=== PATIENT | female | born 1930 | race Caucasian/White ===

== ENCOUNTER 2017-07-18 18:01 | Observation (INO) | payer MEDICARE, MEDICAID ==
[~2017-07-18] VITALS: Ht 160 cm; Wt 95.2 kg
[~2017-07-18 18:01] MED LIST: ALEN70TA2 PO; ALLO300T2 PO; ASCO100089 PO; BENZ-12 PO; CHOL200025 PO; FURO40TA4 PO; HYDR-4003 PO; LOSA100T29 PO; PANT40TA2 PO; POTA10TA12 PO
[2017-07-18 18:27] VITALS: BP 116/103; PULSE 92; RESP 18; O2SAT 94
--- NOTE | 2017-07-18 19:05 | ED.REPORT ---
HPI-Extremity Problem Lower Date of Service Jul 18, 2017 ED Provider: Danish Villa MD Pt is a 87 y/o female with a history of osteoporosis, DM, hypertension, and hyperlipidemia who presents to the ED via EMS complaining of constant left thigh pain onset two days ago. She states that her symptoms started when she got out of bed, and rates her pain is 0/10 at rest, but increases to 2/10 with activity. Additional symptoms include warmth in her feet. She denies leg swelling, chest pain, or SOB. Pt also denies any recent trauma, fall, or similar symptoms in the past. Nursing Notes Stated Complaint: LEFT LEG PAIN Chief Complaint: Extremity Trauma Nursing Notes Reviewed: Yes (Averail, GoInstant not reconciled) Allergies: Coded Allergies: niacin (Verified Allergy, Intermediate, red and itching, 12/27/15) calcitonin (Verified Adverse Reaction, Intermediate, Rash,Itching,, ) Scheduled Alendronate Sodium (Fosamax) 70 Mg Tablet 70 MG PO WEEKLY Allopurinol (Allopurinol) 300 Mg Tablet 300 MG PO DAILY Ascorbic Acid (Vitamin C) 1,000 Mg Tab.chew 1,000 MG PO DAILY Cholecalciferol (Vitamin D3) (Vitamin D3) 2,000 Unit Tablet 2,000 UNIT PO DAILY Furosemide (Furosemide) 40 Mg Tablet 40 MG PO DAILY Losartan Potassium (Losartan Potassium) 100 Mg Tablet 100 MG PO DAILY Potassium Chloride ER (Potassium Chloride ER) 10 Meq Tablet 10 MEQ PO BID TAKE WITH FOOD General Time Seen by MD: 19:01 Chief Complaint Other (Left thigh pain) Hx Obtained From: Patient Arrived By: Ambulance Onset Occurred: 2 days ago Symptom Duration: Constant Quality: Painful Severity: Current: Pain level 0 out of 10 Severity: Maximum: Pain level 2 out of 10 Recent Healthcare: Recent doctor visit Similar Sx Previous: No Past Medical History Past Medical History History of hypercalcemia Gout Reports: Hyperlipidemia, Hypertension Reports: Depression Past Surgical History Right hip fracture repair Family History Colon cancer Smoking History Never Smoker Social History Alcohol Use: Denies alcohol use Drug Use: Denies drug use Other Social History: Good social support, Local resident Ambulatory Status Independent Review of Systems Warmth in feet Musculoskeletal: Reports: Extremity pain (Left thigh pain), Denies: Extremity swelling Complete sys rev & neg: except as marked. Respiratory: Denies: Shortness of breath Cardiovascular: Denies: Chest pain Physical Exam Initial Vital Signs Vital Signs (First) Date Time Temp Pulse Resp B/P Pulse Ox O2 Delivery O2 Flow Rate FiO2 07/18/17 18:27 36.8 92 18 116/103 94 Room Air Initial VS: Reviewed, Vital signs normal Head / Eyes: Atraumatic, Normocephalic Neck: Supple, Full range of motion Upper Extremities: Vascular intact, Neuro intact, No swelling, No tenderness Skin: Warm, Dry, No cyanosis Neurologic: Alert, Oriented, Nonfocal Psychiatric: Mood/affect normal, Behavior normal, Normal thought content Lower Extremity / Pelvis / MS: Full range of motion, No swelling, Neurologic intact, Vascular intact No point tenderness Good pulses Preserved extension and inflection Ankle / Foot: No swelling, Neurologic intact, Vascular intact General/Constitutional: Awake, Alert Appearance / Presentation: Positive: Obese Respiratory / Chest: Atraumatic, Breath sounds NL, Breath sounds = bilat, No respiratory distress Cardiovascular: Heart rate NL, Regular rhythm, Heart sounds NL Interpretation & Diagnostics US VEINOUS LEG DUPLEX UNILATERAL, LEFT IMPRESSION: Occlusive DVT involving the mid to distal left femoral vein. Dictated by: Elissa Hebert M.D. on 07/18/2017 at 21:03 Approved by: Elissa Hebert M.D. on 07/18/2017 at 21:18 Lab Results Interpretation Result Diagram: 07/18/17 2145 Lab Results Interpretation: CBC nonspecific leukocytosis CMP extended laterally, is not resulted, patient being admitted UA negative ECG Interpretation ECG Interpretation: Sinus rhythm, rate 90 LVH Time: 20:56 Interpreted by: ED physician Re-Eval/Medical Decision Med Decision/Clinical Course This is a pleasant 87-year-old female presents with increasing left lower extremity pain. She's noted over the past couple days, denies any known trauma, noted any swelling, denies chest pain or shortness breath. The pain has been variant carpal movement. She is sensitive by PCP with concern for possible DVT. She has no previous DVT or definite known risk factors. She is not anticoagulated. On Exam she appears well. She has intact range of motion with no couple signs of fracture or dislocation. No signs of injury or cellulitis. No overt swellings evident, and the likes neurovascular intact. Her ultrasound is positive for left femoral DVT. On review with her, the patient lives by herself, I can't identify any overt contraindications anticoagulation-but is a little bit of concern of how well she is going to prior self, with pain, is newly anticoagulated. So discussing risks the plan is an observation admission for initial care for DVT, physical therapy evaluation of better assess how she's doing in terms of risk for pain, and education if she needs Lovenox certainly transitioned over to an oral agent sooner. Given this labs and EKG are also being obtained Source of Hx: Old records Re-Evaluation/Progress : Time of Eval: 20:11 Re-Evaluation/Progress Note: Pt rechecked. Discussed DVT on ultrasound and plan for admission. Pt understands and agrees with plan. All questions addressed. Consultation : Referral / Consult Name: Drea Escamilla DO Consulted With: Hospitalist Call Returned at: 20:45 Job Molder: Will see patient, Agrees with plan, Accepts admit Note: Discussed pt's case with hospitalist, Dr. Escamilla. She accepts admission. Differential Diagnosis: Positive: Venous thromboembolism, Negative: Abscess, Arterial occlus/ischemia, Calcaneal fracture, Compartment syndrome, Femur fracture, Fracture, Hip fracture, Knee ligament injury, Open fracture, Paronychia, Puncture wound Counseled Regarding: Diagnosis, Lab results, Need for admission Discharge & Departure Impression: Primary Impression: Deep vein thrombosis DVT location: lower extremity Affected thrombotic vein of extremity: femoral Laterality: left Chronicity: unspecified Qualified Code: I82.412 - Acute embolism and thrombosis of left femoral vein Disposition: ADMITTED TO HOSPITAL Discharge Condition All VS Reviewed: Yes Condition: Stable Referrals: Po Salinas DO (PCP) Scribekaterina Attestation Portions of this note were transcribed by Helene Fuentes. I, Dr. Villa, personally performed the history, physical exam and medical decision-making; I reviewed and confirmed the accuracy of the information in the transcribed note. Signed by: Jason Bryan, 07/18/17. copies to: Po Salinas Matthew F MD Jul 18, 2017 19:05 Helene Fuentes Jul 18, 2017 19:15 Danish Villa MD Jul 18, 2017 19:05 Helene Fuentes Jul 18, 2017 19:15
[2017-07-18] MEDS ORDERED: Ondansetron 2 mg/mL 2 mL Inj IVPUSH PRN (21:20)
[2017-07-18] MEDS ORDERED: Alum-Mag Hydrox-Simeth 30 mL Suspension PO PRN (21:20)
[2017-07-18] MEDS ORDERED: Polyethylene Glycol (PEG) 17 Gm Powder PO PRN (21:20)
--- NOTE | 2017-07-18 21:20 | DRSVH ---
PROCEDURE: US VEINOUS LEG DUPLEX UNILATERAL, LEFT INDICATIONS: Left leg pain. Evaluate for DVT. TECHNIQUE: Real-time imaging, as well as color and pulse Doppler interrogation, were performed of the lower extr emity deep veins from the inguinal ligament to the popliteal fossa. COMPARISON: None. FINDINGS: There are occlusive filling defects in the mid to distal left femoral vein consistent with deep venous thrombosis. IMPRESSION: Occlusive DVT involving the mid to distal left femoral vein. Dictated by: Elissa Hebert M.D. on 07/18/2017 at 21:03 Approved by: Elissa Hebert M.D. on 07/18/2017 at 21:18
[2017-07-18 21:50] LABS: BASOPHILS % (AUTO) 0.3 % (0-3); EOSINOPHILS % (AUTO) 1.7 % (0-5); MONOCYTES % (AUTO) 7.8 % (4-12); Mean Corpuscular Volume 89.9 fL (81-100); NEUTROPHILS % (AUTO) 73.3 % (40-74); Platelet Count 205 bil/L (150-400)
[2017-07-18 22:18] VITALS: BP 164/84; PULSE 91; RESP 22; O2SAT 96
[2017-07-18 22:20] VITALS: PULSE 94
[2017-07-18 22:28] LABS: Magnesium 1.6 mg/dL (1.6-2.6)
[2017-07-18 22:43] LABS: APPEARANCE,URINE CLEAR (CLEAR,HAZY); COLOR,URINE YELLOW (YELLOW); OCCULT BLOOD,URINE NEGATIVE (NEGATIVE); UROBILINOGEN,URINE NORMAL (NORMAL)
--- NOTE | 2017-07-18 22:54 | PCM.HPMED ---
Subjective Date of Service Jul 18, 2017 Primary Provider: Admitting Physician: Drea Escamilla DO Primary Care Physician: Po Salinas DO Attending Physician: Drea Escamilla DO Admit Status: From the Emergency Department, Full Admit Chief Complaint: Lower extremity pain. . History of Present Illness: Katarina Johnson is an 87-year-old female with a past medical history significant for osteoporosis, diabetes mellitus type II, non-insulin using, hypertension and hyperlipidemia who presented to [facility] emergency department via EMS complaining of constant left thigh pain 2 days. She states that her symptoms started when she got out of bed 2 days ago. She rates her pain as a 0 out of 10 at rest but it increases to +2 out of 10 with activity. She reports that her leg pain was so severe today that she was unable to ambulate. She denies headache, chest pain, shortness of breath, lower extremity edema, nausea, vomiting, abdominal pain, fever, chills, dysuria, diarrhea or constipation. Additional symptoms include warmth in her feet. She also denies any recent trauma, fall, surgery, prolonged immobilization or history of blood clot in the past. She has no family history of blood clots. Vital signs in the ER ER: Temperature 36.8. Pulse 92. Respiratory rate 18. Blood pressure . Pulse ox 94% room air. She was started on Lovenox with dosing per pharmacist. ECP is Dr. Salinas. . Review of Systems: A comprehensive review of systems was conducted with the patient and found to be negative except as above in the History of Present Illness. . Allergies Coded Allergies: niacin (Verified Allergy, Intermediate, red and itching, 12/27/15) calcitonin (Verified Adverse Reaction, Intermediate, Rash,Itching,, ) Home Medications Alendronate 70 mg weekly. Allopurinol 300 mg daily. Ascorbic acid 1000 mg daily. Furosemide 40 mg daily. Losartan 100 mg daily. Potassium chloride 10 mEq twice a day. Vitamin D3 2000 international units daily. . PMH 1. Osteoporosis. 2. Gout. 3. Hyperlipidemia. 4. Hypertension. 5. Prediabetes. 6. Vitamin D deficiency. . Surgical History 1. Right hip fracture repair. 2. Hysterectomy and bilateral salpingo-oophorectomy. 3. Bilateral cataract extraction. 4. Colonoscopy with polypectomy 2015. 5. Parathyroid gland removal- benign. . Family History Mother who of CVA at 72 years old. Father with unknown type of cancer and at 90 years old. Twin brother who has colon cancer. . Social History Hx Alcohol Use: No Hx Substance Use: No Hx Tobacco Use: No Smoking Status: Never Smoker Additional Information She is . She has one son and one daughter who are healthy. She is from [place]. . Exam Vital Signs Vital Sign - Last Date Time Temp Pulse Resp B/P Pulse Ox O2 Delivery O2 Flow Rate FiO2 07/18/17 18:27 36.8 92 18 116/103 94 Room Air Exam General: Elderly female lying in bed and in no acute distress, well-developed, well-nourished, appropriately interactive. HEENT: Normocephalic, atraumatic. External ears without defect. Pupils equal, round, and reactive to light. Anicteric sclerae, moist conjunctivae, and no lid lag. Oropharynx free of erythema and cobble stoning with moist mucosa. Neck: Supple with full range of motion. No lymphadenopathy or thyromegaly. Cardiovascular: Regular rate and rhythm without murmurs, rubs, or gallops appreciated Pulmonary: Clear to auscultation bilaterally without crackles, wheezes, or rhonchi. Normal respiratory effort with no use of accessory muscles. Abdomen: Soft, nontender, nondistended, bowel sounds present. No hepatosplenomegaly or masses appreciated. Extremities: No clubbing, cyanosis, or edema. Skin: Normal temperature, turgor, and texture; no rash, ulcers, or subcutaneous nodules appreciated. Neurological: Cranial nerves grossly intact. Normal muscle strength, tone, and bulk. Reflexes, coordination, and sensory function within normal limits. No known gait impairment. Psychiatric: Normal mood and affect. Alert and oriented to person, place, and time. . Lab and Diagnostics Labs Item Value Date Time White Blood Count 11.5 th/mm3 H 07/18/172144 Red Blood Count 4.74 mil/mm3 07/18/172144 Hemoglobin 14.2 g/dL 07/18/172144 Hematocrit 42.6 % 07/18/172144 Mean Corpuscular Volume 89.9 fL 07/18/172144 Mean Corpuscular Hemoglobin 30.0 pg 07/18/172144 Mean Corpuscular Hemoglobin Concent 33.3 % 07/18/172144 Red Cell Distribution Width 15.4 % 07/18/172144 Platelet Count 205 alex/L 07/18/172144 Neutrophils (%) (Auto) 73.3 % 07/18/172144 Lymphocytes (%) (Auto) 16.5 % 07/18/172144 Monocytes (%) (Auto) 7.8 % 07/18/172144 Eosinophils (%) (Auto) 1.7 % 07/18/172144 Basophils (%) (Auto) 0.3 % 07/18/172144 X-Rays, CTs and MRIs US VEINOUS LEG DUPLEX UNILATERAL, LEFT IMPRESSION: Occlusive DVT involving the mid to distal left femoral vein. Dictated by: Elissa Hebert M.D. on 07/18/2017 at 21:03 Approved by: Elissa Hebert M.D. on 07/18/2017 at 21:18 . Assessment & Plan Katarina Johnson is an 87-year-old female with a past medical history significant for osteoporosis, hypertension, and hyperlipidemia who presented to [facility] emergency department via EMS complaining of constant left thigh pain 2 days. 1. Acute lower extremity DVT, present on admission. Active. - Patient presented with left thigh pain 2 days. - The patient denies any history of prolonged immobilization, trauma, fall, recent surgery or previous blood clot. - Ultrasound demonstrated occlusive DVT involving the mid to distal left femoral vein, as above. - Consider hypercoagulable workup. - No history of malignancy. Patient recently had a colonoscopy last year with polypectomy. Of note, she does have a twin brother with colon cancer. - Continue enoxaparin with dosing per pharmacist. Chronic problems: 2. Hypertension, present on admission. Stable. - Continue losartan 100 mg daily, furosemide 40 mg daily, and potassium chloride 10 mEq twice daily. 3. Gout, not present on admission. Stable. - Continue allopurinol 300 mg daily. 4. Osteoporosis, present on admission. Stable. - Patient takes alendronate every Tuesday. Held for now. 5. Prediabetes, present on admission. Stable. - Hemoglobin A1c pending. - Continue to monitor blood glucose. If continuously elevated consider low- dose correctional scale insulin. PRN antiemetics: Zofran and Maalox. PRN bowel regimen: Senna and MiraLAX. PRN analgesics: Tylenol. Patient is admitted under inpatient status with expected length of stay greater than 2 midnights due to severity of presenting symptoms, risk of adverse event, and complexity of treatment plan. . Attending Statement The patient was seen and examined together with house staff on 07/18/2017 and I agree with the history, exam and plan as outlined in the note above. Amy Guerin DO Jul 18, 2017 21:43 Drae Escamilla DO Jul 18, 2017 23:37
[2017-07-18 23:38] LABS: TROPONIN T < 0.010 ug/L (0.0-0.011)
[2017-07-18] MEDS ORDERED: ASCO250T7 PO (23:39)
[2017-07-18] MEDS ORDERED: POLY17PO2 PO (23:39)
--- NOTE | 2017-07-19 00:54 | NUR ---
Admit / Med Rec pt arrived to [facility] room 3005 around 22:10 from the ED, all personal belongings arrived with the pt. MD in room to see pt at that time. tele placed, senior technical support analyst notified. VSS, BP elevated, afebrile, on O2 (does not use at home). pt is A&Ox3. IV SL, patent. pt denies pain. admission questions completed at bedside per previous admission recall and pt' verbal report. call light placed within reach, verbalized understanding of use. pt denied having any questions or concerns at that time. Med Rec completed at bedside per pt's handwritten list, pt verbalized it is up to date. made aware.
[2017-07-19 01:52] VITALS: BP 166/86; PULSE 96; RESP 20; O2SAT 93
[2017-07-19 04:54] VITALS: BP 123/74; PULSE 74; RESP 20; O2SAT 94
--- NOTE | 2017-07-19 05:23 | NUR ---
Oxygen Needs AIR TURNING MACHINE FEEDER placed for high risk RAQUEL, pt O2 sats decreased to 87-88% on RA while in bed asleep, resting. 1L O2 placed by n/c while asleep, pt reports not wearing O2 at home. pt's O2 sats have remained >92% since O2 was placed. continuing to monitor. call light placed within reach, pt using appropriately to make needs known. hourly rounding in effect.
[2017-07-19 05:33] LABS: BASOPHILS % (AUTO) 0.3 % (0-3); EOSINOPHILS % (AUTO) 2.1 % (0-5); MONOCYTES % (AUTO) 8.9 % (4-12); Mean Corpuscular Hemoglobin 30.3 pg (27.0-35.0); Mean Corpuscular Volume 90.3 fL (81-100); NEUTROPHILS % (AUTO) 71.9 % (40-74); Platelet Count 187 bil/L (150-400)
--- NOTE | 2017-07-19 09:14 | NUR ---
Social Work-initial assessment/readiness for discharge: Data:See initial assessment. Pt is a 87 y/o female who was admitted on 07/18/17 for DVT per H&P. Pt's insurance is [facility] and [facility] supp and PCP is Po Salinas DO. EMR reviewed. SW met with pt at bedside, SW role explained. Pt is alert and oriented x3. Pt resides at in [place] at [facility] in a second floor apartment with elevator access. Pt is independent with ADls. Facility that pt lives in has a bus that provides transprot to the grocery store and an individual named Anna that can assist with any other transport needs, pt does not drive. Pt has no HH or SNF history. Pt uses either a fww or cane at baseline. Pt has no continuous churn buttermaker care insurance or VA benefits. No concerns noted around pt's capacity for self care from MD cosmetic sales advisor. DPOA/advanced directive was discussed and pt confirms this has been completed. Pt confirms her friend Anna will provide transport home. Per RN notes, pt has been up independent in her room. SW provided pt with discharge planning checklist and encouraged her to call with any questions, phone number provided on white board in room. No anticipated discharge needs. SW will continue to follow if needs arise. Assessment:pt who is independent at baseline. Plan:Pt to discharge home when medically stable via POV. No anticipated discharge needs. SW will continue to follow if needs arise. SUNNI Fierro Addendum: 07/19/17 at 0919 by ARNOLDO CEDENO Amended: Links added.
[2017-07-19 09:27] VITALS: BP 145/79; PULSE 94; RESP 22; O2SAT 92
[2017-07-19] MEDS ORDERED: APIX5TAB PO (10:26)
--- NOTE | 2017-07-19 10:47 | NUR ---
Called [facility] and got fax number. Faxed prescription to [phone], asked for a call back regarding patients copay for this medication. Updated CHIEF ULTRASOUND TECHNOLOGIST
[2017-07-19 11:03] VITALS: PULSE 92
[2017-07-19] MEDS ORDERED: RIVA15TA PO (11:21)
--- NOTE | 2017-07-19 12:03 | NUR ---
Case Management BRAGA given & explained to pt Becca BARTH RN
--- NOTE | 2017-07-19 12:23 | NUR ---
Social Work-readiness for discharge/bedside rounds: Data:EMR Reviewed. pt is on day 1 of hospitalization for DVT left lower leg per H&P. Pt may discharge later today or tomorrow. order received to check the cost of medications. SW received RX for Eliquis. SW checked with pt and her preferred pharmacy is [facility] in [place]. NIA asked UR specialist to send RX to this pharmacy. SW received a call back stating that this RX would require a prior authorization, but pt's insurance would like cover Pradaxa or Xarelto. NIA updated who has written RX for Xarelto. SW sent this RX to the pharmacy and was informed that this RX would be covered with a $5.77 copay. NIA updated MD regarding the cost and she will speak with pt. NIA will continue to follow. Assessment:Pt who is independent at baseline. Plan:Pt to discharge home when medically stable via POV. Pt's xarelto medication is covered with a $5.77 copy, updated. NIA will continue to follow. SUNNI Fierro
[2017-07-19 14:08] VITALS: BP 111/73; PULSE 97; RESP 20; O2SAT 91
--- NOTE | 2017-07-19 15:22 | DRSVH ---
PROCEDURE: X-RAY CHEST, TWO VIEWS ([id number]) INDICATIONS: hypoxia TECHNIQUE: 2 views of the chest were acquired. COMPARISON: [facility], CR, XR CHEST 2VW, 09/12/2016, 19:17. [facility], C R, XR CHEST 2VW, 12/02/2016, 12:08. FINDINGS: Surgical changes and devices: None. Lungs and pleura: An incomplete inspiratory result is noted, causing a crowded appearance to the lexii g markings. No focal infiltrates are seen. No pneumothorax or significant pleural effusions are see n. Mediastinum: The cardiac contours are within normal limits. The aorta demonstrates calcification and tortuosity. Bones and chest wall: Age-appropriate bony degenerative changes are seen. No suspicious bony abnorm alities. Soft tissues appear unremarkable. IMPRESSION: Limited chest study, without an acute abnormality identified. Dictated by: Juvenal Queen M.D. on 07/19/2017 at 15:19 Approved by: Juvenal Queen M.D. on 07/19/2017 at 15:20
--- NOTE | 2017-07-19 15:45 | PCM.DIMED ---
Discharge Instructions Date of Service Jul 19, 2017 Dates of Hospitalization Jul 18, 2017 at 20:45 Diet Discharge Diet: Low fat, Low Sodium Activity Discharge Activity: No restrictions Call your provider Call your provider for: Shortness of breath, Chest pain, Other (worsening leg pain or swelling) Patient Instructions Patient Instructions In addition to checking your leg and blood thinner medication ask your doctor if you should be referred for a sleep study. Your oxygen levels drop into the 80s when you are sleeping. Follow-up with PCP in: 1 week Dana Medel MD Jul 19, 2017 15:45
--- NOTE | 2017-07-19 15:51 | PCM.DC.MED ---
Discharge Summary Date of Service Jul 19, 2017 Dates of Hospitalization Date of Hospital Admission Jul 18, 2017 at 20:45 Date of Discharge: Jul 19, 2017 Providers: Admitting Physician: Drea Escamilla DO Primary Care Physician: Po Salinas DO Attending Physician: Tyree Whitlock MD Diagnosis at Time of Discharge Diagnosis at Time of Discharge Left lower extremity DVT Procedures XRay, CTs & MRIs US VEINOUS LEG DUPLEX UNILATERAL, LEFT IMPRESSION: Occlusive DVT involving the mid to distal left femoral vein. Dictated by: Elissa Hebert M.D. on 07/18/2017 at 21:03 Approved by: Elissa Hebert M.D. on 07/18/2017 at 21:18 . Brief History Katarina Johnson is an 87-year-old female with a past medical history significant for osteoporosis, diabetes mellitus type II, non-insulin using, hypertension and hyperlipidemia who presented to [facility] emergency department via EMS complaining of constant left thigh pain 2 days. She states that her symptoms started when she got out of bed 2 days ago. She rates her pain as a 0 out of 10 at rest but it increases to +2 out of 10 with activity. She reports that her leg pain was so severe today that she was unable to ambulate. She denies headache, chest pain, shortness of breath, lower extremity edema, nausea, vomiting, abdominal pain, fever, chills, dysuria, diarrhea or constipation. Additional symptoms include warmth in her feet. She also denies any recent trauma, fall, surgery, prolonged immobilization or history of blood clot in the past. She has no family history of blood clots. Vital signs in the ER ER: Temperature 36.8. Pulse 92. Respiratory rate 18. Blood pressure . Pulse ox 94% room air. She was started on Lovenox with dosing per pharmacist. Hospital Course 1. Acute lower extremity DVT, present on admission. Active. - Patient presented with left thigh pain 2 days. - The patient denies any history of prolonged immobilization, trauma, fall, recent surgery or previous blood clot. - Ultrasound demonstrated occlusive DVT involving the mid to distal left femoral vein, as above. - Consider hypercoagulable workup. - No history of malignancy. Patient recently had a colonoscopy last year with polypectomy. Of note, she does have a twin brother with colon cancer. - Initially started on enoxaparin with dosing per pharmacist. - Discussed with the patient options of warfarin (also with Lovenox initially) vs one of the new or agents which does not require Lovenox and does not require frequent lab tests. Did discuss the disadvantage of them being more difficult to reverse than warfarin if she were to have bleeding. She decided to go with Xarelto. # Hypoxia at night - Noted to have O2 saturations down into the 80s during night and 1 L of oxygen per nasal cannula was placed - Following morning having O2 saturations of 92-94% on 1 L - Chest x-ray and BNP were done which were unremarkable - Home oxygen evaluation was needed but she does not require home oxygen - Consider outpatient sleep study Chronic problems: 2. Hypertension, present on admission. Stable. - Continue losartan 100 mg daily, furosemide 40 mg daily, and potassium chloride 10 mEq twice daily. 3. Gout, not present on admission. Stable. - Continue allopurinol 300 mg daily. 4. Osteoporosis, present on admission. Stable. - Patient takes alendronate every Tuesday. Held for now. 5. Prediabetes, present on admission. Stable. - Hemoglobin A1c pending. - Continue to monitor blood glucose. If continuously elevated consider low- dose correctional scale insulin. PRN antiemetics: Zofran and Maalox. PRN bowel regimen: Senna and MiraLAX. PRN analgesics: Tylenol. . Exam Vital Signs (Last) Date Time Temp Pulse Resp B/P Pulse Ox O2 Delivery O2 Flow Rate FiO2 07/19/17 15:27 Room Air 07/19/17 14:08 36.8 97 20 111/73 91 1.00 Test 07/18/17 21:45 07/18/17 21:47 07/18/17 22:20 07/19/17 05:00 Magnesium Level 1.6mg/dL (1.6-2.6) Troponin T < 0.010ug/L (0.0-0.011) Hold Baptiste Top Tube Received (Received) Urine Color Yellow (YELLOW) Urine Appearance Clear (CLEAR,HAZY) Urine pH 6.0 (5.0-8.0) Urine Specific Dunlap 1.010 (1.003-1.035) Urine Protein Negativemg/dL (NEG,TRACE) Urine Glucose (UA) Negativemg/dL (NEGATIVE) Urine Ketones Negativemg/dL (NEGATIVE) Urine Occult Blood Negative (NEGATIVE) Urine Nitrite Negative (NEGATIVE) Urine Bilirubin Negative (NEGATIVE) Urine Urobilinogen Normalmg/dL (NORMAL) Urine Leukocyte Esterase Negative (NEGATIVE) Urine RBC 0-2/hpf (0-2) Urine WBC 0-5/hpf (0-5) Urine Epithelial Cells Few/hpf (NONE-MOD) Urine Crystals None seen (NONE SEEN) Urine Bacteria None/hpf (NONE-FEW) Urine Hyaline Casts None/lpf (NONE) Urine Granular Casts None seen (NONE SEEN) Urine Waxy Casts None seen (NONE SEEN) Urine Red Blood Cell Casts None seen (NONE SEEN) Urine White Blood Cell Casts None seen (NONE SEEN) Urine Mucus None seen (None Seen) Urine Trichomonas None seen (NONE SEEN) Urine Yeast None (NONE SEEN) Urinalysis Comment None Urine Culture Reflexed Not indicated Sodium Level 138mEq/L (134-144) Potassium Level 3.9mEq/L (3.5-5.2) Chloride Level 97mEq/L (97-108) Carbon Dioxide Level 24mmol/L (18-29) Blood Urea Nitrogen 23mg/dL (8-27) Creatinine 0.67mg/dL (0.57-1.00) Estimat Glomerular Filtration Rate 120mL/min (>59) Glucose Level 134mg/dL (60-99) Calcium Level 9.9mg/dL (8.5-10.1) Total Bilirubin 0.8mg/dL (0.0-1.2) Aspartate Amino Transf (AST/SGOT) 19U/L (0-50) Alanine Aminotransferase (ALT/SGPT) 13U/L (0-32) Alkaline Phosphatase 64U/L (25-165) Total Protein 6.5g/dL (6.4-8.4) Albumin 3.9g/dL (3.4-5.0) Test 07/19/17 05:15 07/19/17 05:50 White Blood Count 10.0th/mm3 (3.8-10.1) Red Blood Count 4.66mil/mm3 (3.90-5.20) Hemoglobin 14.1g/dL (12.0-15.6) Hematocrit 42.1% (35.0-46.0) Mean Corpuscular Volume 90.3fL (81-100) Mean Corpuscular Hemoglobin 30.3pg (27.0-35.0) Mean Corpuscular Hemoglobin Concent 33.5% (32.0-37.0) Red Cell Distribution Width 15.5% (12.3-15.4) Platelet Count 187bil/L (150-400) Neutrophils (%) (Auto) 71.9% (40-74) Lymphocytes (%) (Auto) 16.2% (14-46) Monocytes (%) (Auto) 8.9% (4-12) Eosinophils (%) (Auto) 2.1% (0-5) Basophils (%) (Auto) 0.3% (0-3) Pro-B-Type Natriuretic Peptide 133.3pg/mL (0-738) Discharge Medications Discharge Medications Alendronate Sodium (Fosamax) 70 Mg Tablet 70 MG PO WEEKLY (Reported) Allopurinol (Allopurinol) 300 Mg Tablet 300 MG PO DAILY (Reported) Ascorbic Acid (Vitamin C) 250 Mg Tab.chew 1,000 MG PO QAM (Reported) Cholecalciferol (Vitamin D3) (Vitamin D3) 2,000 Unit Tablet 2,000 UNIT PO DAILY (Reported) Furosemide (Furosemide) 40 Mg Tablet 40 MG PO DAILY (Reported) Losartan Potassium (Losartan Potassium) 100 Mg Tablet 100 MG PO DAILY (Reported ) Potassium Chloride ER (Potassium Chloride ER) 10 Meq Tablet 10 MEQ PO BID ( Reported) TAKE WITH FOOD Rivaroxaban (Xarelto) 15 Mg Tablet 15 MG PO BID 15 mg twice a day for 3 weeks then 20 mg daily Prescribed by: TYREE WHITLOCK MD As needed Polyethylene Glycol 3350 (Polyethylene Glycol 3350) 17 Gm Powd.pack 17 GM PO DAILY PRN PRN For Constipation (Reported) Followup Plan Discharge Diet: Low fat, Low Sodium Discharge Activity: No restrictions Patient Instructions In addition to checking your leg and blood thinner medication ask your doctor if you should be referred for a sleep study. Your oxygen levels drop into the 80s when you are sleeping. Follow-up with PCP in: 1 week Tyree Whitlock MD Jul 19, 2017 15:51
--- NOTE | 2017-07-19 16:00 | NUR ---
Social Work-discharge: Data:EMR Reviewed. Pt is no day 1 of hospitalization for DVT per H&P. Pt is medically stable for discharge. SW called [facility] pharmacy back and informed them just to fill the Xarelto medication. Pt's copay is only $5.77. Pt has been up independent in her room. No other discharge needs identified. All updated and agreeable to plan. Assessment:Pt who is independent at baseline. Plan:Pt to discharge home today via POV. No other discharge needs identified. All updated and agreeable to plan. SUNNI Fierro
--- NOTE | 2017-07-19 17:37 | NUR ---
Discharge Patient discharge to home with all belongings at 1700. Explained to patient new medication (Xarelto), when next dose of medications were due, and discharge instruction. Patient verbalized understanding. Dc'd IV intact. Dc'd telemetry. Vitals stable. Patient left floor on her own two feet with FWW accompanied by transportation technician with no signs of distress.
== END 2017-07-19 17:00 | disposition home or self-care (01) ==
LOC: EDUNIT# 18:01 → EDBD 18:01 → SED 18:01 → UNDOADMOB 20:45 → MPC 20:45
PROVIDERS: ADMIT Internal Medicine; ATTEND Internal Medicine
DX: I82.412 Acute embolism and thrombosis of left femoral vein (principal); G47.34 Idiopathic sleep related nonobstructive alveolar hypoventilation; M81.0 Age-related osteoporosis without current pathological fracture; I10 Essential (primary) hypertension; R73.03 Prediabetes; E78.5 Hyperlipidemia, unspecified; F32.9 Major depressive disorder, single episode, unspecified; Z88.8 Allergy status to other drugs, medicaments and biological substances
CPT/HCPCS: 36415; 71020; 80053; 81000; 83036; 83735; 83880; 84484; 85025; 93005; 93970; 94799; 96372; 99285; G0378; J1650